=== PATIENT | female | born 1970 | race Two or more races ===

== ENCOUNTER 2025-08-13 07:40 | Inpatient (IN) | payer OTHER ==
[~2025-08-13] VITALS: Ht 170.2 cm; Wt 83.5 kg
[2025-08-13] VITALS (29 sets, daily range): BP systolic 108–151; BP diastolic 69–137; TEMP 98.2–98.6; O2SAT 94–100
[2025-08-13] MEDS ORDERED: EPINEPHRINE (1:1000) 1 MG/ML AMPUL ONE (08:11)
[2025-08-13] MEDS ORDERED: CEFTRIAXONE 1GM BAG (ER ONLY) 50 ML IV ONE (08:12)
[2025-08-13] MEDS ORDERED: FAMOTIDINE/PF INJ 20 MG/2 ML VIAL IV ONE (08:12)
[2025-08-13 08:20] LABS: PLATELET COUNT (AUTO) 274 K/uL (150-450); RED BLOOD CELL COUNT(AUTO) 4.08 MIL/uL (4.0-5.2); RED CELL DISTRIBUTION WIDTH 14.6 % (11.5-15.0); WHITE BLOOD COUNT (AUTO) 5.5 K/uL (4.3-11.0)
[2025-08-13] MEDS: EPINEPHRINE (1:1000) 1 MG/ML AMPUL SUBCUT ONE (08:25)
[2025-08-13 08:33] LABS: ASPARTATE AMINOTRANSFERASE 15.0 U/L (15-37); CALCIUM, SERUM 9.7 mg/dL (8.5-10.1); CREATININE 1.0 mg/dL (0.6-1.3); SODIUM SERUM 138.0 mmol/L (136-145); TOTAL PROTEIN, SERUM 7.8 g/dL (6.4-8.2); UREA NITROGEN, BLOOD 20.0 mg/dL (7-18)
[2025-08-13] MEDS: FAMOTIDINE/PF INJ 20 MG/2 ML VIAL IV ONE (08:40)
[2025-08-13] MEDS: CEFTRIAXONE 1 G in IV D5W 50 ML IV ONE (08:41)
[2025-08-13] MEDS: IV NS 0.9% 1,000 ML BAG IV ONE (09:19)
[2025-08-13] MEDS ORDERED: ALBUTEROL FS 2.5 MG/0.5 ML VIAL.NEB NEB PRN (10:30)
[2025-08-13] MEDS ORDERED: ACETAMINOPHEN 325 MG TABLET PO PRN (10:30)
[2025-08-13] MEDS ORDERED: ONDANSETRON HCL/PF 4 MG/2 ML VIAL IVP PRN (10:30)
[2025-08-13] MEDS: MORPHINE SULFATE INJ 2 MG/ML DISP.SYRIN IV PRN (12:02)
[2025-08-13] MEDS ORDERED: TIZA4TAB5 PO (12:50)
[2025-08-13] MEDS ORDERED: CYCL10TA9 PO (12:50)
[2025-08-13] MEDS ORDERED: ALBU8.5H8 IH (12:50)
[2025-08-13] MEDS ORDERED: GABA-532 PO (12:50)
[2025-08-13] MEDS ORDERED: METF750T46 PO (12:50)
[2025-08-13] MEDS ORDERED: HYDR25TA4 PO (12:50)
[2025-08-13] MEDS ORDERED: METH750T3 PO (12:50)
[2025-08-13] MEDS ORDERED: LISI10TA29 PO (12:50)
[2025-08-13] MEDS ORDERED: IBUP-1492 PO (12:50)
[2025-08-13] MEDS ORDERED: DEXTROSE 50%-WATER 50 ML DISP.SYRIN IV PRN (14:00)
[2025-08-13] MEDS: POTASSIUM CHLORIDE 20 MEQ POWDER PACKET PO ONE (17:01)
[2025-08-13] MEDS: BLOOD SUGAR DIAGNOSTIC 1 EACH STRIP IN SCH (17:07)
[2025-08-13] MEDS: INSULIN REGULAR, HUMAN 100 UNIT/ML 3 ML VIAL SQ PRN (17:19)
[2025-08-14] VITALS (12 sets, daily range): BP systolic 104–147; BP diastolic 65–92; TEMP 97.6–98.2; O2SAT 92–100
[2025-08-14 05:07] LABS: PLATELET COUNT (AUTO) 273 K/uL (150-450); RED BLOOD CELL COUNT(AUTO) 3.68 MIL/uL (4.0-5.2); RED CELL DISTRIBUTION WIDTH 14.5 % (11.5-15.0); WHITE BLOOD COUNT (AUTO) 11.0 K/uL (4.3-11.0)
[2025-08-14 05:21] LABS: ASPARTATE AMINOTRANSFERASE 9.0 U/L (15-37); CALCIUM, SERUM 9.8 mg/dL (8.5-10.1); CREATININE 0.7 mg/dL (0.6-1.3); PHOSPHORUS 2.9 mg/dL (2.5-4.9); SODIUM SERUM 141.0 mmol/L (136-145); TOTAL PROTEIN, SERUM 7.3 g/dL (6.4-8.2); UREA NITROGEN, BLOOD 22.0 mg/dL (7-18)
[2025-08-14] MEDS ORDERED: HYDR-3972 PO ×2 (10:48→10:51)
[2025-08-14] MEDS ORDERED: AMOX-427 PO (10:48)
== END 2025-08-14 12:06 | disposition home or self-care (01) | DRG 811 ==
LOC: ER 08:20 → ICU IN 10:22 → ICU 10:51
PROVIDERS: ADMIT Internal Medicine; ATTEND Internal Medicine
PROC: 30233K1 Transfusion of Nonautologous Frozen Plasma into Peripheral Vein, Percutaneous Approach (ICD-10-PCS; principal; 2025-08-13)
DX: T78.3XXA Angioneurotic edema, initial encounter (principal); R13.10 Dysphagia, unspecified; E11.9 Type 2 diabetes mellitus without complications; E78.5 Hyperlipidemia, unspecified; K12.2 Cellulitis and abscess of mouth; I10 Essential (primary) hypertension; J45.909 Unspecified asthma, uncomplicated; T46.4X5A Adverse effect of angiotensin-converting-enzyme inhibitors, initial encounter; Y92.099 Unspecified place in other non-institutional residence as the place of occurrence of the external cause; E87.6 Hypokalemia; Z79.84 Long term (current) use of oral hypoglycemic drugs
CPT/HCPCS: 36415; 71045-TC; 80053-TC; 82962-TC; 83735-TC; 84100-TC; 85025-TC; 86850-TC; 87081-TC; 92526; 92611; G0378; J0169; J0696; J1200; J1308; J1815; J2270; J2919; J7030; J7050; J7060; P9017